=== PATIENT | female | born 1985 | race African-American/Black ===

== ENCOUNTER 2018-02-04 07:51 | Emergency (ER) | payer OTHER ==
[~2018-02-04] VITALS: Ht 162.6 cm; Wt 59.0 kg
[2018-02-04 07:51] VITALS: BP 106/75
--- NOTE | 2018-02-04 08:01 | PHYS DOC ---
Past History Past Medical History: No Pertinent History Smoking: Non-smoker Adult General HPI HPI Patient is a 32-year-old female presents to the emergency department for evaluation. She states that when she was getting into her car last night, she slipped and lost her footing, and twisted her right foot, and is complaining of pain in the midfoot on the right, more lateral than medial. She is able to bear weight on the medial aspect of her foot. She did sustain an abrasion on the distal aspect of the right foot laterally, just proximal to the fifth MTP joint. She denies any ankle pain or any other injuries. She has not had any numbness or weakness. She has not had any significant bruising or soft tissue swelling. Her immunizations, including tetanus, are current. Ambulation palpation of the affected area worsen her pain. There are no alleviating factors to her symptoms. Review of Systems Review of Systems Constitutional: Denies fever or chills [] : Denies [] Musculoskeletal: Denies back pain or joint pain other than right foot pain [] Integument: Denies rash or skin lesions [] Neurologic: Denies headache, focal weakness or sensory changes [] Physical Exam Physical Exam PHYSICAL EXAM: HEENT: Atruamatic NECK: Supple, normal ROM, non-tender. CARDIAC: Regular Rate and Rhythm LUNGS: Clear Bilaterally EXTREMITIES: There is tenderness to palpation of the midfoot on the right, dorsally, as well as along the base of the fifth metatarsal, without any deformity or significant soft tissue swelling. There is a superficial abrasion on the distal aspect of the right fifth metatarsal, dorsally. Dorsalis pedis pulses present and strong. There is normal range of motion in all toes, normal sensation. The ankle is nontender. The remainder of the extremities are atraumatic, with normal range of motion. EKG EKG [] Radiology/Procedures Radiology/Procedures [ER physician preliminary x-ray interpretation: No acute fracture or dislocation noted.] Course & Med Decision Making Course & Med Decision Making Pertinent Imaging studies reviewed. (See chart for details) [8:15 AM:Patient remains stable. I discussed test results, the need for close follow-up, and return precautions.] Dragon Disclaimer Dragon Disclaimer This electronic medical record was generated, in whole or in part, using a voice recognition dictation system. Departure Departure: Impression: Primary Impression: Foot sprain Additional Impression: Abrasion Disposition: HOME, SELF-CARE Condition: STABLE Referrals: NON,STAFF (PCP) Patient Instructions: Abrasions, Foot Sprain Problem Qualifiers ALEJANDRA WYMAN MD Feb 04, 2018 08:01
--- NOTE | 2018-02-04 08:14 | RAD ---
History: Right lateral foot pain with laceration. Comparison: None. Findings: AP, lateral, and oblique views of the right foot. There is focal soft tissue swelling along the lateral aspect of the 5th MTP joint. No acute fracture or dislocation is identified. No acute osseous abnormality is seen. No radiopaque foreign body is appreciated. Impression: 1. Soft tissue swelling around the 5th MTP joint. 2. No acute osseous abnormality or radiopaque foreign body is identified. Electronically signed by: Cale Durham MD (02/04/2018 8:11 AM) [place] [id number]
[2018-02-04] MEDS ORDERED: IBUPROFEN 600 MG TABLET. PO ONE (08:30)
== END 2018-02-04 08:30 | disposition home or self-care (01) ==
LOC: ER 07:51
DX: S93.691A Other sprain of right foot, initial encounter (principal); X50.1XXA Overexertion from prolonged static or awkward postures, initial encounter; Y93.89 Activity, other specified; Y92.89 Other specified places as the place of occurrence of the external cause; Y99.8 Other external cause status
CPT/HCPCS: 73630; 99284